=== PATIENT | female | born 1965 | race Caucasian/White ===

== ENCOUNTER 2017-04-05 19:21 | Emergency (ER) | payer OTHER ==
[~2017-04-05] VITALS: Ht 165.1 cm; Wt 70.3 kg
[~2017-04-05 19:21] MED LIST: METR250T PO; PANT40TA2 PO; SULF1TAB48 PO
--- NOTE | 2017-04-05 19:33 | NUR ---
to bed 3 bib paramedics c/o L sided chest x1 hour lighter captain. pt aaox4 no acute distress noted, resp even and unlabored. place pt on cardiac monitoring, continuous pox, o2@2l/nc. pending er md san.
--- NOTE | 2017-04-05 19:35 | NUR ---
er md at bedside to eval pt with orders recieved.
--- NOTE | 2017-04-05 19:45 | NUR ---
started sl 18g to [facility], blood drawn and sent to lab.
[2017-04-05 19:55] LABS: BASOPHILS % (AUTO) 0.5 % (0.0-2.0); EOSINOPHILS % (AUTO) 0.6 % (0.0-6.0); HEMATOCRIT 40 % (33-45); HEMOGLOBIN 13.3 g/dL (11.5-14.8); LYMPHOCYTES # (AUTO) 2.4 /CMM (0.8-4.8); LYMPHOCYTES % (AUTO) 29.3 % (20.0-44.0); MEAN CORPUSCULAR HEMOGLOBIN 30 PG (26.0-33.0); MEAN CORPUSCULAR HGB CONC 33 g/dl (31.0-36.0); MEAN CORPUSCULAR VOLUME 90 fL (82-100); MONOCYTES # (AUTO) 0.5 /CMM (0.1-1.30); MONOCYTES % (AUTO) 5.9 % (2.0-12.0); NEUTROPHILS # (AUTO) 5.3 /CMM (1.8-8.9); NEUTROPHILS % (AUTO) 63.7 % (43.0-81.0); PLATELET COUNT (AUTO) 215 /CMM (150-450); RDW COEFFICIENT OF VARIATION 12.9 (11.5-15.0); RED BLOOD CELL COUNT(AUTO) 4.47 MIL/uL (4.0-5.2); WHITE BLOOD COUNT (AUTO) 8.3 K/uL (4.3-11.0)
--- NOTE | 2017-04-05 19:57 | NUR ---
pt family member at bedside.
[2017-04-05] MEDS ORDERED: ASPIRIN 325 MG TABLET PO ONE (20:00)
[2017-04-05] MEDS ORDERED: ASPIRIN 325 MG TABLET ONE (20:00)
[2017-04-05 20:07] LABS: CALCIUM, SERUM 8.6 mg/dL (8.5-10.1); CARBON DIOXIDE 27 mmol/L (21-32); CHLORIDE 106 mmol/L (98-107); CREATININE 0.9 mg/dL (0.6-1.3); GFR 65 mL/min (>60); GLUCOSE 107 mg/dL (74-106); POTASSIUM 3.5 mmol/L (3.5-5.1); SODIUM SERUM 142 mmol/L (136-145); UREA NITROGEN, BLOOD 17 mg/dL (7-18)
[2017-04-05 20:11] LABS: INR 0.93 (0.87-1.13); PROTHROMBIN TIME 9.9 SECS (9.5-12.7)
[2017-04-05 20:16] LABS: TROPONIN I < 0.017 ng/mL (0.00-0.056)
[2017-04-05 20:48] VITALS: BP 121/73
--- NOTE | 2017-04-05 20:54 | NUR ---
IV removed. Catheter intact and site benign. Pressure and 4x4 applied to site. No bleeding noted.Patient discharged to home in stable condition. Written and verbal after care instructions given. Patient verbalizes understanding of instruction. pt aaox4 no acute distress noted, resp even and unlabored. pt at bedside to take pt home.
== END 2017-04-05 20:56 | disposition home or self-care (01) ==
LOC: ER 19:21
DX: R07.89 Other chest pain (principal); K21.9 Gastro-esophageal reflux disease without esophagitis
CPT/HCPCS: 36415; 71010-TC; 80048-TC; 84484-TC; 85025-TC; 85730-TC; A4606; Z7610

== ENCOUNTER 2018-09-14 13:21 | Emergency (ER) | payer OTHER ==
[~2018-09-14] VITALS: Ht 165.1 cm; Wt 90.0 kg
[2018-09-14 13:52] LABS: BASOPHILS % (AUTO) 0.7 % (0.0-2.0); HEMATOCRIT 41 % (33-45); HEMOGLOBIN 13.7 g/dL (11.5-14.8); LYMPHOCYTES % (AUTO) 47.3 % (20.0-44.0); MEAN CORPUSCULAR HGB CONC 34 g/dl (31.0-36.0); MEAN CORPUSCULAR VOLUME 91 fL (82-100); MONOCYTES # (AUTO) 0.3 /CMM (0.1-1.30); MONOCYTES % (AUTO) 7.8 % (2.0-12.0); NEUTROPHILS # (AUTO) 1.7 /CMM (1.8-8.9); NEUTROPHILS % (AUTO) 43.2 % (43.0-81.0); PLATELET COUNT (AUTO) 241 /CMM (150-450); RDW COEFFICIENT OF VARIATION 12.3 (11.5-15.0); RED BLOOD CELL COUNT(AUTO) 4.49 MIL/uL (4.0-5.2)
[2018-09-14 14:00] LABS: CALCIUM, SERUM 9.2 mg/dL (8.5-10.1); CARBON DIOXIDE 27 mmol/L (21-32); CHLORIDE 106 mmol/L (98-107); CREATININE 0.9 mg/dL (0.6-1.3); GLUCOSE 109 mg/dL (74-106); POTASSIUM 3.8 mmol/L (3.5-5.1); SODIUM SERUM 142 mmol/L (136-145); UREA NITROGEN, BLOOD 12 mg/dL (7-18)
[2018-09-14] MEDS ORDERED: ASPIRIN 325 MG TABLET PO ONE (14:00)
[2018-09-14 14:04] LABS: INR 0.9 (0.85-1.15)
[2018-09-14] MEDS ORDERED: ASPIRIN 81 MG TAB.CHEW ONE (14:04)
[2018-09-14] MEDS ORDERED: ASPIRIN 325 MG TABLET ONE (14:06)
[2018-09-14 14:09] LABS: TROPONIN I < 0.017 ng/mL (0.00-0.056)
[2018-09-14 14:13] LABS: ALBUMIN 3.9 g/dL (3.4-5.0); BILIRUBIN,TOTAL 0.2 mg/dL (0.2-1.0); TOTAL PROTEIN, SERUM 7.7 g/dL (6.4-8.2)
--- NOTE | 2018-09-14 15:00 | NUR ---
Pt states "feel better. Pain free at this time. Reclining in bed appears comfortable
--- NOTE | 2018-09-14 17:00 | NUR ---
Spouse at bedside. Pt updated w/plan 2nd trop drawn-sent. Denies any pain NAD/No acute changes
--- NOTE | 2018-09-14 17:45 | NUR ---
Pt for discharge- [facility]CI given verbalized understanding home w/spouse in stable condition Pain free
[2018-09-14 18:10] VITALS: BP 126/80
== END 2018-09-14 18:11 | disposition home or self-care (01) ==
LOC: ER 13:23
DX: R07.89 Other chest pain (principal); E78.00 Pure hypercholesterolemia, unspecified
CPT/HCPCS: 36415; 71045; 80048; 80076; 84484 ×2; 85025; 85730; 93005 ×3; 99285; A4606; Z7610

== ENCOUNTER 2019-07-22 15:18 | Emergency (ER) | payer OTHER ==
[~2019-07-22] VITALS: Ht 165.1 cm; Wt 91.2 kg
[2019-07-22 15:18] VITALS: BP 130/76
--- NOTE | 2019-07-22 15:18 | NUR ---
PT BIB SELF FROM HOME C/O DIZZINESS, PT IS AAOX3, NOT IN RESPIRATORY DISTRESS, HOOKED TO MONITOR, KEPT RESTED AND COMFORTABLE, WILL CONTINUE TO MONITOR. AWAITING ER MD FOR EVAL.
--- NOTE | 2019-07-22 16:07 | NUR ---
AT BEDSIDE FOR EVAL.
[2019-07-22] MEDS ORDERED: MECLIZINE HCL 25 MG TABLET ONE (16:19)
[2019-07-22] MEDS ORDERED: MECLIZINE HCL 12.5 MG TABLET PO ONE (16:30)
--- NOTE | 2019-07-22 17:42 | NUR ---
Patient discharged to home in stable condition. Written and verbal after care instructions given. Patient verbalizes understanding of instruction.
== END 2019-07-22 17:48 | disposition home or self-care (01) ==
LOC: ER 15:19
DX: H81.392 Other peripheral vertigo, left ear (principal); E78.00 Pure hypercholesterolemia, unspecified
CPT/HCPCS: 93005; 99283; J8597